=== PATIENT | male | born 1940 | race Caucasian/White ===

== ENCOUNTER 2024-08-01 14:46 | Emergency (ER) | payer OTHER, SELFPAY ==
[2024-08-01 14:54] VITALS: BP 159/96; PULSE 65; RESP 18; TEMP 36.3; O2SAT 96; BMI 30.7
--- NOTE | 2024-08-01 15:09 | ED.GENADULT ---
HPI - General Adult General Time Seen by Provider: 15:09 Date Seen: 08/01/24 Chief complaint: Dizziness/Vertigo Stated complaint: Dizziness earlier, headache Time Seen by Provider: 08/01/24 15:09 Source: patient, EMS and RN notes reviewed Mode of arrival: ambulatory Limitations: no limitations History of Present Illness HPI narrative: 84-year-old male who comes in today with headache and balance problems. Patient notes when he got up this morning he felt fine but when he got out of bed he fell over into the wall. He continued to have couple episodes like this. No injuries. Feels like he is falling toward the right. Denies numbness or tingling in the arms or legs, no weakness in the arms or legs, no speech difficulty, no swelling difficulty. Denies falls or injuries. No chest pain or palpitations. Related Data Home Medications ?Medication ?Instructions ?Recorded ?Confirmed amlodipine 5 mg tablet 5 mg PO DAILY 08/01/24 08/01/24 atorvastatin 40 mg tablet 40 mg PO DAILY 08/01/24 08/01/24 glipizide 10 mg tablet, extended 10 mg PO BID 08/01/24 08/01/24 release 24 hr hydrochlorothiazide 25 mg tablet 25 mg PO DAILY 08/01/24 08/01/24 losartan 100 mg tablet 100 mg PO DAILY 08/01/24 08/01/24 metformin 500 mg tablet,extended 1,000 mg PO BID 08/01/24 08/01/24 release 24 hr metoprolol tartrate 25 mg tablet 25 mg PO BID 08/01/24 08/01/24 omeprazole 20 mg capsule,delayed 20 mg PO DAILY 08/01/24 08/01/24 release pioglitazone 30 mg tablet 30 mg PO DAILY 08/01/24 08/01/24 Allergies Allergy/AdvReac Type Severity Reaction Status Date / Time No Known Drug Allergies Allergy Verified 08/01/24 15:03 [facility] Social History Smoking Status: Never smoker Do you use any of these nicotine containing products: None How often do you have a drink containing alcohol: never How often do you have six or more drinks on one occasion: Never AUDIT-C Alcohol total score: 0 Non-prescribed substance use: denies use Exam Narrative: Exam Narrative: General: Well-developed and well-nourished, no acute distress Head: Atraumatic and normocephalic Eyes: Pupils are equal reactive, extraocular motions intact, conjunctiva clear ENT: External nose and ears are normal, posterior pharynx without erythema or exudate Neck: No midline cervical tenderness, full spontaneous range of motion the neck, trachea midline, no adenopathy Heart: Regular rate and rhythm no murmurs or thrills Lungs: Clear to auscultation bilaterally without wheezes or crackles Abdomen: Soft, nontender, nondistended with active bowel sounds Musculoskeletal: No tenderness, deformity, or edema Neurologic: Awake, alert, and oriented x3, no gross focal neurologic deficits, cranial nerves intact as tested Psych: Mood and affect are appropriate Skin: No rashes Const: Vital Signs, click to edit/add: Vital Signs - 24 hr 08/01/24 14:54 Temperature 97.4 F L Pulse Rate [Right Pulse Oximeter] 65 Respiratory Rate 18 Blood Pressure [Ri ght Upper Arm] 159/96 H Pulse Oximetry 96 Oxygen Delivery Me thod Room Air Course Course ED Course: Patient seen examined, reviewed most recent primary care visit from June 2024 which was follow-up for diabetes and leg swelling, at that time amlodipine and decreased in swelling was improved, patient was doing well at that time. Patient has a history of diabetes, hypertension, lupus, prostate cancer, COPD. Patient presents today with feeling off balance since this morning, woke up like this. Says when he got out of bed he fell to the right this continued to have some falling to the right, is using a walker today which is not usual for him. Denies numbness or tingling in the arms or legs, denies weakness of the arms or legs, no speech problems. On exam here, patient is awake alert, no focal neurologic deficits, [id number] testing and rapid alternating movements intact. Symptoms could be from inner ear dysfunction but also concern for central cause including acute CVA. Labs and MRI ordered. Did consider CT scan of the head patient's symptoms are acute and fairly subtle, likely to be missed on CT scan. EKG independently interpreted by me performed at 3:13 p.m. demonstrates sinus bradycardia rate 58, no acute ST elevations or depressions, normal axis, normal intervals, QTC 429, MS 180. Compared to prior of December 2021, no change Reevaluation(s) Time of Reevaluation #1: 16:21 Reevaluation #1: Labs independently interpreted by me with normal CBC, normal basic metabolic panel other than slightly elevated glucose, normal magnesium. Time of Reevaluation #2: 17:23 Reevaluation #2: Reviewed radiology interpretation of MRI which is negative for acute intracranial findings. Urinalysis still pending, patient will be given meclizine and plan to discharge. Time of Reevaluation #3: 17:34 Reevaluation #3: Labs independently interpreted by me with normal urinalysis. Patient is stable for discharge with outpatient follow-up. Vital Signs Vital signs: Initial Vital Signs Temperature 97.4 F L 08/01/24 14:54 Temperature Source Temporal Artery Scan 08/01/24 14:54 Pulse Rate 65 08/01/24 14:54 Pulse Rhythm Regular 08/01/24 14:54 Pulse Strength 3+ Normal 08/01/24 14:54 Respiratory Rate 18 08/01/24 14:54 Blood Pressure 159/96 H 08/01/24 14:54 Blood Pressure Mean 117 H 08/01/24 14:54 Blood Pressure Position Sitting 08/01/24 14:54 Pulse Oximetry 96 08/01/24 14:54 Oxygen Delivery Method Room Air 08/01/24 14:54 Vital Signs Temperature 97.4 F L 08/01/24 14:54 Pulse Rate 65 08/01/24 14:54 Respiratory Rate 18 08/01/24 14:54 Blood Pressure 159/96 H 08/01/24 14:54 Pulse Oximetry 96 08/01/24 14:54 Oxygen Delivery Method Room Air 08/01/24 14:54 Temperature 97.4 F L 08/01/24 14:54 Pulse Rate 65 08/01/24 14:54 Respiratory Rate 18 08/01/24 14:54 Blood Pressure 159/96 H 08/01/24 14:54 Pulse Oximetry 96 08/01/24 14:54 Oxygen Delivery Method Room Air 08/01/24 14:54 Medical Decision Making Lab Data Labs: Lab Results 08/01/24 08/01/24 Range/Units 15:40 17:09 WBC 5.27 (4.50-11.00) K/uL RBC 4.20 L (4.30-5.90) m/uL Hgb 12.6 L (13.5-17.5) gm/dL Hct 38.3 (37.0-53.0) % MCV 91 (80-100) fL MCH 30 (26-34) pg MCHC 33 (32-36) gm/dL RDW Coeff of Darnell 14.0 (11.5-15.5) % Plt Count 231 (140-440) K/uL Neut % (Auto) 66.6 (42.0-72.0) % Lymph % (Auto) 22.4 (20-44) % [place] % (Auto) 9.3 (0.0-11.0) % Eos % (Auto) 1.1 (0.0-7.0) % Baso % (Auto) 0.2 (0.0-3.0) % Neut # (Auto) 3.51 (1.7-7.0) K/uL Lymph # (Auto) 1.18 (0.90-2.90) K/uL [place] # (Auto) 0.50 (0.00-0.90) K/UL Eos # (Auto) 0.06 (0.00-0.50) K/uL Baso # (Auto) 0.01 (0.00-0.30) K/uL Abs Immat Gran (auto) 0.02 (0.00-0.30) K/uL Imm/Tot Granulo (auto) 0.4 % Sodium 137 (135-149) mmol/L Potassium 4.3 (3.6-5.1) mmol/L Chloride 104 (96-114) mmol/L Carbon Dioxide 24 (20-32) mmol/L Anion Gap 9 (7-15) mEq/L BUN 24 (7-30) mg/dL Creatinine 0.8 (0.5-1.5) mg/dL Estimated Creat Clear 58.81 Estimated GFR 88 ml/min Glucose 126 H (60-115) mg/dL Calcium 9.2 (8.4-10.6) mg/dL Magnesium 1.9 (1.5-2.6) mg/dL Urine Color Yellow (Yellow) Urine Appearance Clear (Clear) Urine pH 7.0 (5.0-8.5) Ur Specific [place] 1.015 (1.000-1.030) Urine Protein Negative (Negative) Urine Glucose (UA) Negative (Negative) Urine Ketones Negative (Negative) Urine Blood Negative (Negative) Urine Nitrite Negative (Negative) Urine Bilirubin Negative (Negative) Urine Urobilinogen 0.2 (0.2-1.0) Ur Leukocyte Esterase Negative (Negative) Urine RBC 0-2 (0-2) Urine WBC 0-2 (0-5) Ur Squamous Epith Cells Few (None-Few) Urine Bacteria None (None) Discharge Plan Discharge Clinical Impression: Disequilibrium Instructions: Dizziness (ED) Additional Instructions: Use your walker as needed to help with your balance Follow-up with your primary care doctor next week Activity Level: Activity as Tolerated Discharge Diet: Regular and Diabetic Prescriptions: No Action atorvastatin 40 mg tablet 40 mg PO DAILY glipizide 10 mg tablet extended release 24hr 10 mg PO BID amlodipine 5 mg tablet 5 mg PO DAILY omeprazole 20 mg capsule,delayed release(DR/EC) 20 mg PO DAILY hydrochlorothiazide 25 mg tablet 25 mg PO DAILY pioglitazone 30 mg tablet 30 mg PO DAILY losartan 100 mg tablet 100 mg PO DAILY metformin 500 mg tablet extended release 24 hr 1,000 mg PO BID metoprolol tartrate 25 mg tablet 25 mg PO BID Follow Up/Referrals: Bridger Loo MD [Primary Care Provider] -
--- NOTE | 2024-08-01 15:22 | CRLHL7_ITS ---
For Patients: As a result of the Century Cures Act, medical imaging exams and procedure reports are released immediately into your electronic medical record. You may view this report before your referring provider. If you have questions, please contact your health care provider. Indication: Disequilibrium, falling to the right Technique: Brain and temporal bone MRI with contrast. The following sequences were obtained: DWI and ADC mapping sequences. Sagittal T1 weighted sequence. Axial FLAIR and T2 weighted sequences of the whole brain. 3D T2-weighted high resolution sequence of the temporal bones. Thin section T1 weighted axial and coronal pre-contrast and post-contrast sequences of the temporal bones. 3D T1 weighted post-contrast sequence of the whole brain. 20 cc Dotarem gadolinium based contrast agent was used. Comparison: None Findings: No diffusion abnormalities. No evidence of recent or prior hemorrhage. No mass effect. The collado and white matter are normal in signal intensity. Mild parenchymal volume loss. Few punctate scattered foci of T2 prolongation in the supratentorial white matter are nonspecific but typical for chronic microangiopathic change. The sella turcica, its contents and adjacent structures appear normal. All the major intracranial vascular structures demonstrate normal flow-related signal voids and intraluminal enhancement. The inner ears, internal auditory canals, cerebellopontine angle cisterns, cerebellum, brainstem and temporal lobes bilaterally are normal in appearance. No vessel frankly impinges upon the 7th/8th cranial nerve complexes. There is no mass or pathologic enhancement involving the 7th or 8th cranial nerves on either side. Bilateral pseudophakia. Rightward deviation nasal septum. No marrow signal abnormality. The paranasal sinuses and mastoid air cells are unremarkable. The scalp and other imaged soft tissue structures are normal in appearance. Impression: 1. No evidence of acute intracranial abnormality. 2. Mild parenchymal volume loss chronic microangiopathic changes. 3. Unremarkable internal auditory canals, cerebellopontine angles, otic capsular structures, and cranial nerve cisternal segments. 4. No pathologic enhancement. Dictated by Jose Daniel Carcamo MD @ 08/01/2024 5:22:41 PM (Electronically Signed)
[2024-08-01 15:56] LABS: Basophils Absolute Auto 0.01 K/uL (0.00-0.30); Basophils Percent Auto 0.2 % (0.0-3.0); Eosinophils Absolute Auto 0.06 K/uL (0.00-0.50); Eosinophils Percent Auto 1.1 % (0.0-7.0); Hematocrit 38.3 % (37.0-53.0); Hemoglobin* 12.6 gm/dL (13.5-17.5); Immature Granulocytes Abs Auto 0.02 K/uL (0.00-0.30); Immature Granulocytes Pct Auto 0.4 %; Lymphocytes Absolute Auto 1.18 K/uL (0.90-2.90); Lymphocytes Percent Auto 22.4 % (20-44); Mean Corpuscular HGB Conc 33 gm/dL (32-36); Mean Corpuscular Hemoglobin 30 pg (26-34); Mean Corpuscular Volume 91 fL (80-100); Monocytes Percent Auto 9.3 % (0.0-11.0); Neutrophils Absolute Auto 3.51 K/uL (1.7-7.0); Neutrophils Percent Auto 66.6 % (42.0-72.0); Platelet Count* 231 K/uL (140-440); White Blood Count* 5.27 K/uL (4.50-11.00)
[2024-08-01 15:58] LABS: Slide Review Reflex No
[2024-08-01 16:07] LABS: Chloride* 104 mmol/L (96-114); Potassium* 4.3 mmol/L (3.6-5.1); Sodium* 137 mmol/L (135-149)
[2024-08-01 16:10] LABS: Anion Gap 9 mEq/L (7-15); Carbon Dioxide* 24 mmol/L (20-32); Creatinine* 0.8 mg/dL (0.5-1.5); Est. Creatinine Clearance* 58.81; Estimated Glomerular Filt Rate 88 ml/min
[2024-08-01 16:11] LABS: Blood Urea Nitrogen* 24 mg/dL (7-30); Calcium* 9.2 mg/dL (8.4-10.6); Glucose* 126 mg/dL (60-115); Magnesium* 1.9 mg/dL (1.5-2.6)
[2024-08-01 17:24] LABS: Appearance Urine Clear (Clear); Bilirubin Urine Negative (Negative); Blood Urine Negative (Negative); Color Urine Yellow (Yellow); Glucose Urine Negative (Negative); Ketones Urine Negative (Negative); Leukocyte Esterase Urine Negative (Negative); Nitrite Urine Negative (Negative); Protein Urine Negative (Negative); Specific Gravity Urine 1.015 (1.000-1.030); Urobilinogen Urine 0.2 (0.2-1.0)
[2024-08-01 17:25] LABS: RBC Urine 0-2 (0-2); Squamous Epithelial Cell Urine Few (None-Few); WBC Urine 0-2 (0-5)
[2024-08-01] MEDS: MECLIZINE HCL 25 MG TABLET PO (17:37)
[2024-08-01 17:45] VITALS: BP 147/74; PULSE 66; RESP 18; O2SAT 97
== END 2024-08-01 17:49 | disposition home or self-care (01) ==
LOC: ED 15:39
PROVIDERS: Emergency Provider Family Medicine; PCP Family Medicine
DX: E87.8 Other disorders of electrolyte and fluid balance, not elsewhere classified (principal)
CPT/HCPCS: 36415; 70553; 80048; 81001; 83735; 85025; 93005; 99284; 99285; A9270; A9575

== ENCOUNTER 2024-08-05 10:30 | Outpatient (RCR) | payer OTHER, SELFPAY | END 2024-09-23 10:52 | disposition home or self-care (01) | PROVIDERS: PCP Family Medicine; Visit Provider Family Medicine | DX: G56.03 Carpal tunnel syndrome, bilateral upper limbs (principal); G56.21 Lesion of ulnar nerve, right upper limb; M79.641 Pain in right hand; M79.642 Pain in left hand; M25.521 Pain in right elbow; R20.2 Paresthesia of skin; Z51.89 Encounter for other specified aftercare | CPT/HCPCS: 97035; 97110; 97140; 97165; X5282 ==